=== PATIENT | male | born 1940 | race Caucasian/White ===

== ENCOUNTER 2017-07-08 19:42 | Emergency (ER) | payer OTHER, MEDICARE ==
[~2017-07-08] VITALS: Ht 172.7 cm; Wt 70.0 kg
[2017-07-08] MEDS ORDERED: DIATRIZOATE MEGLUM/DIATRIZOATE SOD 120 ML BTL (for RAD DIAG) G-TUBE ONE (19:43)
[2017-07-08 19:57] VITALS: BP 154/94; PULSE 97; RESP 16; TEMP 97.4; O2SAT 100
--- NOTE | 2017-07-08 22:19 | PD ---
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 The patient states that sometime around 3:58 PM today his tube became dislodged. He does admit to some congestion and cough. He denies any nausea vomiting. No abdominal pain. He is been urinating and stooling normally. 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, hypertension Tetanus Vaccination: Unknown Past Surgical History Narrative Surgical Gastric tube Social History Alcohol Use: No Tobacco Use: No Substance Use: No Allergies-Medications (Allergen,Severity, Reaction): Coded Allergies: ciprofloxacin (Verified Allergy, Unknown, 07/08/17) sulfamethoxazole (Verified Allergy, Unknown, 07/08/17) trimethoprim (Verified Allergy, Unknown, 07/08/17) Reported Meds & Prescriptions Reported Meds & Active Scripts Active Cleocin Pediatric Granule Liq (Clindamycin Palmitate HCl) 75 Mg/5 Ml Soln 300 Mg PO Q6H 7 Days Review of Systems General / Constitutional: No: Fever Eyes: No: Visual changes HENT: No: Headaches Cardiovascular: No: Chest Pain or Discomfort Respiratory: Positive: Cough, No: Shortness of Breath Gastrointestinal: Positive: Nausea, No: Abdominal Pain Genitourinary: No: Dysuria Musculoskeletal: No: Pain Skin: No Rash Neurologic: No: Weakness Psychiatric: No: Depression Endocrine: No: Polydipsia Hematologic/Lymphatic: No: Easy Bruising Physical Exam Narrative GENERAL: This is a well-nourished, well-developed patient, in no apparent distress. Patient appears chronically ill. SKIN: Patient has a scabbed lesion on his lower lip. He is mildly pale. Warm and dry. HEAD: Atraumatic. Normocephalic. EYES: PERRL, EOMI, no discharge or injection. No scleral icterus. EARS: Clear NOSE: Nasal turbinates appear normal. THROAT: Mucosa pink and dry. Airway patent. NECK: Trachea midline. supple, moves head freely. LUNGS: Few scattered rhonchi with upper airway noise. CV: Regular in rhythm. ABDOMEN: Soft nontender. Patient has a stoma of a gastric tube in his left upper abdomen. He has his gastric tube with him. EXT: No clubbing cyanosis or edema. Data Data Last Documented VS Vital Signs Date Time Temp Pulse Resp B/P (MAP) Pulse Ox O2 Delivery O2 Flow Rate FiO2 07/09/17 02:04 100 Partial Rebreather 15.00 07/09/17 01:55 124 22 117/64 (81) 07/08/17 19:57 97.4 Orders Orders Chest, Single Ap (07/08/17 22:51) Abdomen, Single View (07/08/17 22:51) Diatrizoate Liq ( Gastroview Liq) (07/08/17 19:43) Complete Blood Count With Diff (07/09/17 00:05) Comprehensive Metabolic Panel (07/09/17 00:05) C-Reactive Protein (Crp) (07/09/17 00:05) Iv Access Insert/Monitor (07/09/17 00:05) Blood Culture (07/09/17 01:36) Lactic Acid Sepsis Protocol (07/09/17 01:36) Vancomycin Inj (Vancomycin Inj) (07/09/17 01:45) Piperacil-Tazo 2.25 Gm Premix (Zosyn 2.2 (07/09/17 01:45) Electrocardiogram (07/09/17 ) Clindamycin Liq (Cleocin Liq) (07/09/17 02:30) Sodium Chlor 0.9% 1000 Ml Inj (Ns 1000 M (07/09/17 02:45) Labs Laboratory Tests Test 07/09/17 01:20 07/09/17 01:55 White Blood Count 6.2 TH/MM3 Red Blood Count 3.55 MIL/MM3 Hemoglobin 10.2 GM/DL Hematocrit 32.1 % Mean Corpuscular Volume 90.3 FL Mean Corpuscular Hemoglobin 28.7 PG Mean Corpuscular Hemoglobin Concent 31.7 % Red Cell Distribution Width 20.7 % Platelet Count 241 TH/MM3 Mean Platelet Volume 10.2 FL Neutrophils (%) (Auto) 67.5 % Lymphocytes (%) (Auto) 18.0 % Monocytes (%) (Auto) 10.4 % Eosinophils (%) (Auto) 3.7 % Basophils (%) (Auto) 0.4 % Neutrophils # (Auto) 4.2 TH/MM3 Lymphocytes # (Auto) 1.1 TH/MM3 Monocytes # (Auto) 0.6 TH/MM3 Eosinophils # (Auto) 0.2 TH/MM3 Basophils # (Auto) 0.0 TH/MM3 CBC Comment DIFF FINAL Differential Comment Blood Urea Nitrogen 20 MG/DL Creatinine 1.08 MG/DL Random Glucose 147 MG/DL Total Protein 7.8 GM/DL Albumin 2.0 GM/DL Calcium Level 9.2 MG/DL Alkaline Phosphatase 96 U/L Aspartate Amino Transf (AST/SGOT) 36 U/L Alanine Aminotransferase (ALT/SGPT) 40 U/L Total Bilirubin 0.3 MG/DL Sodium Level 144 MEQ/L Potassium Level 3.8 MEQ/L Chloride Level 103 MEQ/L Carbon Dioxide Level 33.5 MEQ/L Anion Gap 8 MEQ/L Estimat Glomerular Filtration Rate 66 ML/MIN C-Reactive Protein 2.25 MG/DL Lactic Acid Level 4.0 mmol/L MDM Medical Decision Making Medical Screen Exam Complete: Yes Emergency Medical Condition: Yes Medical Record Reviewed: Yes Interpretation(s) Laboratory Tests Test 07/09/17 01:20 07/09/17 01:55 White Blood Count 6.2 TH/MM3 Red Blood Count 3.55 MIL/MM3 Hemoglobin 10.2 GM/DL Hematocrit 32.1 % Mean Corpuscular Volume 90.3 FL Mean Corpuscular Hemoglobin 28.7 PG Mean Corpuscular Hemoglobin Concent 31.7 % Red Cell Distribution Width 20.7 % Platelet Count 241 TH/MM3 Mean Platelet Volume 10.2 FL Neutrophils (%) (Auto) 67.5 % Lymphocytes (%) (Auto) 18.0 % Monocytes (%) (Auto) 10.4 % Eosinophils (%) (Auto) 3.7 % Basophils (%) (Auto) 0.4 % Neutrophils # (Auto) 4.2 TH/MM3 Lymphocytes # (Auto) 1.1 TH/MM3 Monocytes # (Auto) 0.6 TH/MM3 Eosinophils # (Auto) 0.2 TH/MM3 Basophils # (Auto) 0.0 TH/MM3 CBC Comment DIFF FINAL Differential Comment Blood Urea Nitrogen 20 MG/DL Creatinine 1.08 MG/DL Random Glucose 147 MG/DL Total Protein 7.8 GM/DL Albumin 2.0 GM/DL Calcium Level 9.2 MG/DL Alkaline Phosphatase 96 U/L Aspartate Amino Transf (AST/SGOT) 36 U/L Alanine Aminotransferase (ALT/SGPT) 40 U/L Total Bilirubin 0.3 MG/DL Sodium Level 144 MEQ/L Potassium Level 3.8 MEQ/L Chloride Level 103 MEQ/L Carbon Dioxide Level 33.5 MEQ/L Anion Gap 8 MEQ/L Estimat Glomerular Filtration Rate 66 ML/MIN C-Reactive Protein 2.25 MG/DL Lactic Acid Level 4.0 mmol/L Last 24 hours Impressions Chest X-Ray 07/08/172250 Signed Impressions: Service Date/Time: July 23:14 - CONCLUSION: Bilateral parenchymal infiltrates. Andrea Barrios MD Abdomen X-Ray 07/08/172250 Signed Impressions: Service Date/Time: July 23:16 - CONCLUSION: No evidence of obstruction. Andrea Barrios MD Differential Diagnosis Differential diagnoses: Gastric tube malfunction, accidental removal of gastric tube, medical clearance Narrative Course This is a 77-year-old white male who presents to the emergency Department due to a G-tube malfunction. During his evaluation here in the ER it was noted that he had some mild respiratory complaints with cough and congestion. He had audible rhonchi. The patient was alert and oriented. He was able to converse. The patient had his G-tube replaced and they x-ray to confirm its placement was performed along with a chest x-ray. Chest x-ray confirmed bilateral infiltrates. During the patient's evaluation in the ER it was noted that he had a drop in blood pressure and became tachycardic. It is assumed that he is once again becoming septic from pneumonia. Discussion with the reveals that he just went home the day before from [facility] due to aspiration pneumonia. The patient has had a long history of recurrent pneumonia and frequent admissions to the hospital. He had just signed a DNR. Hospice was coming to the facility today for his first visit. The once again reiterated that the did not want any advanced measures. She wanted comfort measures only but would treat his pneumonia if necessary. She also voiced that she would like him to go back to the nursing facility at all possible. She states that she would agree to admit the patient if he could not receive care at the nursing facility. The hospice nurse feels that the patient can get antibiotics and hydration at the nursing facility and that he does not necessitate admission. The patient's has been made aware of his deteriorating status and are concerned that the patient is becoming septic. Patient has been given a total 2 L of saline and clindamycin 300 mg he is PEG tube. Laboratory testing reveals a normal white count but a lactic acid level of 4.0. Procedures Procedure Narrative Gastric tube placement: The patient's stoma and left upper quadrant. The skin is prepped with ChloraPrep. K-Y jelly is placed on the skin as well as on the new G-tube. A 20 [place] G-tube was gently inserted through the stoma. There is initially some resistance due to the fact that tube has been out for several hours. With gentle pressure it does pass through the stoma. There is no bleeding. We will obtain a KUB with Gastrografin to confirm tube placement prior to his use. Diagnosis Primary Impression: Sepsis Qualified Codes: A41.9 - Sepsis, unspecified organism Additional Impression: Pneumonia Qualified Codes: J18.9 - Pneumonia, unspecified organism Patient Instructions: General Instructions Additional Instructions: Rest. Supplemental oxygen. Increase fluids through his G-tube. Clindamycin through the G-tube Recheck with physician in the next 24 hours. Return to the ER for emergencies. Med/Other Pt SpecificInfo: Prescription(s) given Scripts Clindamycin Liq (Cleocin Pediatric Granule Liq) 75 Mg/5 Ml Soln 300 MG PO Q6H for Infection for 7 Days, #560 ML 0 Refills Prov: Ritu Santiago DO 07/09/17 Disposition: 01 DISCHARGE HOME Condition: Stable Enmanuel Sung Jul 08, 2017 22:19
--- NOTE | 2017-07-08 23:43 | RADRPT ---
EXAM DATE/TIME: 07/08/2017 23:14 [facility] COMPARISON: No previous studies available for comparison. INDICATIONS : Patient complains of cough, congestion, and shortness of breath. MEDICAL HISTORY : None. SURGICAL HISTORY : None. ENCOUNTER: Initial ACUITY: 2 days PAIN SCORE: 0/10 LOCATION: chest FINDINGS: There is mild volume loss on the right with abnormal patchy parenchymal opacity seen throughout the r ight lung as well as a interstitial opacity in the left upper lobe and patchy airspace disease in lef t lower lobe. Heart size normal. No effusions. Osseous structures are intact. CONCLUSION: Bilateral parenchymal infiltrates. Andrea Barrios MD on July 08, 2017 at 23:41 Board Certified Radiologist. This report was verified electronically.
--- NOTE | 2017-07-08 23:44 | RADRPT ---
EXAM DATE/TIME: 07/08/2017 23:16 [facility] COMPARISON: No previous studies available for comparison. INDICATIONS : Evaluate for G-tube placement. MEDICAL HISTORY : None. SURGICAL HISTORY : None. ENCOUNTER: Initial ACUITY: 1 day PAIN SCORE: 0/10 LOCATION: Abdomen FINDINGS: Nonobstructive bowel gas pattern. A gastrostomy tube is noted with contrast within it to an opacifyin g the stomach. CONCLUSION: No evidence of obstruction. Andrea Barrios MD on July 08, 2017 at 23:43 Board Certified Radiologist. This report was verified electronically.
[2017-07-09 01:35] VITALS: BP 79/61; PULSE 120; RESP 24; O2SAT 90
[2017-07-09 01:39] LABS: AUTOMATED NEUTROPHIL # 4.2 TH/MM3 (1.8-7.7); BASOPHIL % 0.4 % (0.0-2.0); EOSINOPHIL # 0.2 TH/MM3 (0-0.4); EOSINOPHIL % 3.7 % (0.0-4.0); HEMATOCRIT 32.1 % (39.0-51.0); HEMO FLAGS DIFF FINAL; LYMPHOCYTE # 1.1 TH/MM3 (1.0-4.8); MEAN CELL VOLUME 90.3 FL (80.0-100.0); MEAN CORPUSCULAR HEMOGLOBIN 28.7 PG (27.0-34.0); MEAN CORPUSCULAR HGB CONC 31.7 % (32.0-36.0); MONO % 10.4 % (0.0-8.0); NEUT % 67.5 % (16.0-70.0); PLATELET COUNT 241 TH/MM3 (150-450); RED BLOOD COUNT 3.55 MIL/MM3 (4.50-5.90); RED CELL DISTRIBUTION WIDTH 20.7 % (11.6-17.2); WHITE BLOOD COUNT 6.2 TH/MM3 (4.0-11.0)
[2017-07-09] MEDS ORDERED: VANCOMYCIN INJ 1,050 MG in SODIUM CHLOR 0.9% 250 ML INJ 250 ML IV ONE (01:45)
[2017-07-09] MEDS ORDERED: PIPERACIL-TAZO 2.25 GM PREMIX 50 ML IV ONE (01:45)
--- NOTE | 2017-07-09 01:50 | PD ---
Physical Exam Narrative I, Dr. Santiago, have reviewed the advance practice practitioner's documentation and am in agreement, met with the patient face to face, made the diagnosis, and the medical decision making was done by me. *My assessment and Findings: G-tube malfunction vs. COPD exacerbation vs. Pneumonia 77yo M with squamous cell carcinoma of esophagus in hospice care here with G- tube malfunction. G-tube was changed. Xray abdomen after showed gastrostomy tube noted with contrast within it to an opacifying stomach. Pt also noted to have coarse breath sounds so CXR ordered and showed bilateral parenchymal infiltrates. Labs added and showed no leukocytosis. H/H low at 10.2/32.1. Lactic acid is elevated at 4.0. During pt's ED course, pt's blood pressure was noted to be 70s/40s and HR was 120bpm. Pt given NS IVF and BP improved to 140/73. Initially ordered EKG, vancomycin, zosyn and ABG but cancelled after further discussion with pt's and hospice nurse. Pt is DNR/DNI. Pt is under hospice care with comfort measures only and has chronic aspiration pneumonia. Want to go back to hospice if possible. Given clindamycin through peg tube. Will transfer back to hospice and give antibiotics through peg tube. Data Data Last Documented VS Vital Signs Date Time Temp Pulse Resp B/P (MAP) Pulse Ox O2 Delivery O2 Flow Rate FiO2 07/09/17 02:04 100 Partial Rebreather 15.00 07/09/17 01:55 124 22 117/64 (81) 07/08/17 19:57 97.4 Orders Orders Chest, Single Ap (07/08/17 22:51) Abdomen, Single View (07/08/17 22:51) Diatrizoate Liq ( Gastroview Liq) (07/08/17 19:43) Complete Blood Count With Diff (07/09/17 00:05) Comprehensive Metabolic Panel (07/09/17 00:05) C-Reactive Protein (Crp) (07/09/17 00:05) Iv Access Insert/Monitor (07/09/17 00:05) Blood Culture (07/09/17 01:36) Lactic Acid Sepsis Protocol (07/09/17 01:36) Vancomycin Inj (Vancomycin Inj) (07/09/17 01:45) Piperacil-Tazo 2.25 Gm Premix (Zosyn 2.2 (07/09/17 01:45) Clindamycin Liq (Cleocin Liq) (07/09/17 02:30) Sodium Chlor 0.9% 1000 Ml Inj (Ns 1000 M (07/09/17 02:45) Labs Laboratory Tests Test 07/09/17 01:20 07/09/17 01:55 White Blood Count 6.2 TH/MM3 Red Blood Count 3.55 MIL/MM3 Hemoglobin 10.2 GM/DL Hematocrit 32.1 % Mean Corpuscular Volume 90.3 FL Mean Corpuscular Hemoglobin 28.7 PG Mean Corpuscular Hemoglobin Concent 31.7 % Red Cell Distribution Width 20.7 % Platelet Count 241 TH/MM3 Mean Platelet Volume 10.2 FL Neutrophils (%) (Auto) 67.5 % Lymphocytes (%) (Auto) 18.0 % Monocytes (%) (Auto) 10.4 % Eosinophils (%) (Auto) 3.7 % Basophils (%) (Auto) 0.4 % Neutrophils # (Auto) 4.2 TH/MM3 Lymphocytes # (Auto) 1.1 TH/MM3 Monocytes # (Auto) 0.6 TH/MM3 Eosinophils # (Auto) 0.2 TH/MM3 Basophils # (Auto) 0.0 TH/MM3 CBC Comment DIFF FINAL Differential Comment Blood Urea Nitrogen 20 MG/DL Creatinine 1.08 MG/DL Random Glucose 147 MG/DL Total Protein 7.8 GM/DL Albumin 2.0 GM/DL Calcium Level 9.2 MG/DL Alkaline Phosphatase 96 U/L Aspartate Amino Transf (AST/SGOT) 36 U/L Alanine Aminotransferase (ALT/SGPT) 40 U/L Total Bilirubin 0.3 MG/DL Sodium Level 144 MEQ/L Potassium Level 3.8 MEQ/L Chloride Level 103 MEQ/L Carbon Dioxide Level 33.5 MEQ/L Anion Gap 8 MEQ/L Estimat Glomerular Filtration Rate 66 ML/MIN C-Reactive Protein 2.25 MG/DL Lactic Acid Level 4.0 mmol/L [facility] Supervised Visit with QUINN: Yes Diagnosis Primary Impression: Pneumonia Qualified Codes: J18.9 - Pneumonia, unspecified organism Additional Impression: PEG tube malfunction Patient Instructions: General Instructions Scripts Clindamycin Liq (Cleocin Pediatric Granule Liq) 75 Mg/5 Ml Soln 300 MG PO Q6H for Infection for 7 Days, #560 ML 0 Refills Prov: Ritu Santiago DO 07/09/17 Condition: Stable Ritu Santiago DO Jul 09, 2017 01:49
[2017-07-09 01:55] VITALS: BP 117/64; PULSE 124; RESP 22; O2SAT 98
[2017-07-09 02:04] VITALS: O2SAT 100
[2017-07-09 02:13] LABS: ALT (GPT) 40 U/L (12-78); ANION GAP 8 MEQ/L (5-15); AST (GOT) 36 U/L (15-37); BICARBONATE 33.5 MEQ/L (21.0-32.0); BLOOD UREA NITROGEN 20 MG/DL (7-18); CHLORIDE 103 MEQ/L (98-107); GLOMERULAR FILTRATION RATE 66 ML/MIN (>89); POTASSIUM 3.8 MEQ/L (3.5-5.1); SODIUM (NA) 144 MEQ/L (136-145)
[2017-07-09 02:15] LABS: ALKALINE PHOSPHATASE 96 U/L (45-117); TOTAL BILIRUBIN ADULT 0.3 MG/DL (0.2-1.0)
[2017-07-09] MEDS ORDERED: CLIN75S PO (02:22)
[2017-07-09] MEDS ORDERED: CLINDAMYCIN PALMITATE SOLN 75 MG/5 ML 100 ML BTL PO SCH (02:30)
[2017-07-09] MEDS ORDERED: SODIUM CHLOR 0.9% 1000 ML INJ 1,000 ML IV ONE (02:45)
[2017-07-09 04:07] LABS: LACTIC ACID GHOST NOT REPORTABLE
== END 2017-07-09 03:30 | disposition home or self-care (01) ==
LOC: NEPD 19:42
DX: A41.9 Sepsis, unspecified organism (principal); J18.9 Pneumonia, unspecified organism; K94.23 Gastrostomy malfunction; C15.9 Malignant neoplasm of esophagus, unspecified; I10 Essential (primary) hypertension; Z66 Do not resuscitate; Z88.2 Allergy status to sulfonamides
CPT/HCPCS: 43760; 71010; 74000; 80053; 83605; 85025; 86140; 87040; 96374; 96375; 99284; J2543; J3370; J7030; J7050; Q9963